=== PATIENT | female | born 1930 | race Caucasian/White ===

== ENCOUNTER 2016-08-23 06:13 | Day surgery (SDC) | payer MEDICARE, BC ==
--- NOTE | ~2016-08-23 | OP ---
Record Of Operation [facility] [address] [place]. [address] NAME: LISA ROONEY : 30 STATUS : REG [facility] PAT#: [id number] AGE: 85 ADM/REG DATE : 08/23/16 MR#: [id number] REPORT SERV DATE: 08/23/16 DICTATED BY: HILARIO MCKEON JR. DATE: 08/23/16 REPORT STATUS : Draft TRANSCRIBED BY: PERLITA DATE: 08/23/16 DATE OF PROCEDURE: 08/23/2016 PREOPERATIVE DIAGNOSIS: Previous coronary bypass surgery, mediastinal lymphadenopathy with atypical chest pain, lymphoma, hypothyroidism, type 2 zyc-iqnskec-cbfofimdh diabetes mellitus, and hypertension. POSTOPERATIVE DIAGNOSIS: Granulomatous disease, rule out sarcoidosis, initial impressions were cancer. NAME OF OPERATION: Diagnostic and therapeutic bronchoscopy, endobronchial ultrasound with multiple fine-needle aspirations, rosalba stations 4R, 4L, 7, 11R. SURGEON: Dr. Hilario Mckeon Jr. RESIDENT SURGEON: Nadeem Waddell. ANESTHESIA: General endotracheal. FINDINGS: The patient was noted to have multiple abnormal lymph nodes in the paratracheal, subcarinal, and hilar regions. They did not look necessarily malignant. On touch prep, there were areas of significant granulomas more suggestive of sarcoidosis. Abundant material was obtained including cultures and flow cytometry. There are no endobronchial lesions or abnormalities seen on bronchoscopy. Final pathology is pending. DETAILS OF OPERATION: After adequate general anesthesia, the patient was intubated with an LMA. Diagnostic and therapeutic bronchoscopy was performed. Endobronchial ultrasound was then performed noting the enlarged lymph nodes in the paratracheal, subcarinal, and hilar regions. Multiple fine-needle aspirations in touch preps. Multiple fine-needle aspirations were performed in all these regions. Touch preps demonstrated benign-appearing lymphocytes with non-necrotizing granulomas. This was somewhat suggestive of sarcoidosis. Additional material was sent for cell block as well as flow cytometry and cultures. Adequate hemostasis was obtained. The procedure was terminated at this point. The patient tolerated the procedure well and taken back to the recovery room in stable condition. TUNDE/PERLITA Hilario Mckeon Jr., M.D. / [id number] CC: Hilario Mckeon Jr., M.D. Record Of Operation [address] [address] NAME: LISA ROONEY : 30 STATUS : REG [facility] PAT#: [id number] AGE: 85 ADM/REG DATE : 08/23/16 MR#: [id number] REPORT SERV DATE: 08/23/16 DICTATED BY: HILARIO MCKEON JR. DATE: 08/23/16 REPORT STATUS : Draft TRANSCRIBED BY: PERLITA DATE: 08/23/16 [place] Pimentel M.D.
[~2016-08-23 06:13] MED LIST: ASA5GR PO; GLUCOPHXR7 PO; ISOSORB DIN30 MG PO; LEVOTHYROXIN75 MCG PO; LIPITOR80 MG PO; LOP100 PO; NORV5 PO
[2016-08-23 06:36] LABS: HEMATOCRIT 40.1 % (36.0-48.0); HEMOGLOBIN 12.6 g/dL (12.0-16.0)
[2016-08-23 06:47] LABS: BUN (BLOOD UREA NITROGEN) 23 MG/DL (6-23); CALCIUM, SERUM 8.8 MG/DL (8.5-10.4); CHLORIDE, SERUM 108 MMOL/L (96-112); CO2 (CARBON DIOXIDE) 31 MMOL/L (24-34); CREATININE 1.21 MG/DL (0.55-1.02); GFR AFRICAN AMERICAN 47 ML/MIN (>=60); GFR NON AFRICAN AMERICAN 41 ML/MIN (>=60); GLUCOSE, SERUM 115 MG/DL (60-99); POTASSIUM, SERUM 4.3 MMOL/L (3.5-5.3); SODIUM, SERUM 141 MMOL/L (135-148)
== END 2016-08-23 23:59 | disposition home or self-care (01) ==
LOC: DMU 06:13
PROVIDERS: Anesthesiology; Thoracic Surgery (Cardiothoracic Vascular Surgery)
PROC: 07B74ZX Excision of Thorax Lymphatic, Percutaneous Endoscopic Approach, Diagnostic (ICD-10-PCS; principal; 2016-08-23 08:00)
DX: I88.9 Nonspecific lymphadenitis, unspecified (principal); J44.9 Chronic obstructive pulmonary disease, unspecified; E11.9 Type 2 diabetes mellitus without complications; E78.2 Mixed hyperlipidemia; I10 Essential (primary) hypertension; E03.9 Hypothyroidism, unspecified; I25.10 Atherosclerotic heart disease of native coronary artery without angina pectoris; I25.2 Old myocardial infarction; Z83.3 Family history of diabetes mellitus; Z82.49 Family history of ischemic heart disease and other diseases of the circulatory system; Z79.82 Long term (current) use of aspirin; Z79.899 Other long term (current) drug therapy; Z95.1 Presence of aortocoronary bypass graft; Z87.891 Personal history of nicotine dependence; Z98.41 Cataract extraction status, right eye; Z98.42 Cataract extraction status, left eye; Z90.89 Acquired absence of other organs; Z90.49 Acquired absence of other specified parts of digestive tract
CPT/HCPCS: 80048; 85014; 85018; 87015; 87070; 87102; 87116; 87205; 88172; 88173; 88305; 88312; 88342; 93005; A9270-GY; C1725; J2405; J3010